=== PATIENT | female | born 1940 | race Caucasian/White ===

== ENCOUNTER 2018-09-23 14:39 | Emergency (ER) | payer MEDICARE, OTHER ==
--- NOTE | 2018-09-23 15:51 | EDM.PDOC ---
ED HPI GENERAL MEDICAL PROBLEM - General Chief Complaint: Gastrointestinal Problem Stated Complaint: VOMITING Time Seen by Provider: 09/23/18 15:00 Source of Information: Reports: Patient, Family History Limitations: Reports: No Limitations - History of Present Illness INITIAL COMMENTS - FREE TEXT/NARRATIVE: Patient states that she had episode of vomiting 3 this morning with some right lower quadrant abdominal pain 5/6 dull/crampy she said after she vomited though the pain went away she says only thing that she had to eat was last night was some dry peanuts she also states that she had acid reflux and has been belching until she vomited today she states currently now though that she feels 100% overall she has no pain feels normal has no complaints at this time patient states she has not taken any of her meds and last 24 hours which includes her insulin that she takes usually 3 times a day she has not checked her sugar this morning we checked it here in the ER and is 275 Patient has significant history for colon cancer with partial colon resection 10 years ago and has had no issues since she has been followed up and examined in the last year and was given a clean bill of health last bowel movement was 2 days ago which is normal for her to go 2 or 3 days without 1 Onset: Today Duration: Hour(s): Location: Reports: Abdomen - Related Data Allergies Allergy/AdvReac Type Severity Reaction Status Date / Time acetaminophen [From NyQuil] Allergy Other Verified 09/23/18 14:59 caffeine Allergy Cannot Verified 09/23/18 14:59 Remember codeine Allergy Rash Verified 09/23/18 14:59 dextromethorphan Allergy Other Verified 09/23/18 14:59 [From NyQuil] doxylamine [From NyQuil] Allergy Other Verified 09/23/18 14:59 pseudoephedrine Allergy Other Verified 09/23/18 14:59 Home Meds: Home Meds Lisinopril 20 mg PO DAILY 01/09/17 [History] Aspirin [Aspirin EC] 325 mg PO DAILY 09/23/18 [History] Furosemide [Lasix] 20 mg PO DAILY 09/23/18 [History] Hydrocodone/Acetaminophen [[place] 10-325 Tablet] 1 each PO Q6H PRN 09/23/18 [ History] Insulin Aspart [NovoLOG] 0 unit SQ ASDIRECTED 09/23/18 [History] Insulin Glarg,Human.Rec.Analog [Lantus Solostar] 10 unit SUBCUT BEDTIME [History] Levothyroxine 75 mcg PO ACBREAKFAST 09/23/18 [History] Meclizine [Antivert] 12.5 mg PO Q6H PRN 09/23/18 [History] Meloxicam [Mobic] 15 mg PO DAILY PRN 09/23/18 [History] Metoprolol Succinate [Toprol XL 50mg] 50 mg PO DAILY 09/23/18 [History] Oxybutynin Chloride [Ditropan Xl] 10 mg PO DAILY 09/23/18 [History] Simvastatin [Zocor] 20 mg PO BEDTIME 09/23/18 [History] Past Medical History Cardiovascular History: Reports: Heart Failure, High Cholesterol, Hypertension Gastrointestinal History: Reports: GERD Genitourinary History: Reports: Chronic Renal Insuffiency Other NURSE ORTHO History: ovarian cyst Musculoskeletal History: Reports: Gout, Osteoarthritis Psychiatric History: Reports: Depression Endocrine/Metabolic History: Reports: Diabetes, Type II, Hypothyroidism, Obesity /BMI 30+ Oncologic (Cancer) History: Reports: Colon Social & Family History - Tobacco Use Smoking Status *Q: Never Smoker ED ROS GENERAL - Review of Systems Review Of Systems: See Below Constitutional: Reports: No Symptoms. Denies: Fever, Chills, Malaise, Weakness HEENT: Reports: No Symptoms Respiratory: Reports: No Symptoms Cardiovascular: Reports: No Symptoms Endocrine: Reports: No Symptoms GI/Abdominal: Reports: No Symptoms, Abdominal Pain, Nausea, Vomiting, Other ( This morning approximately 9 AM is when she had the pain had some nausea and vomited 3 times but is fine now she said after the third time she felt much better) : Reports: No Symptoms Musculoskeletal: Reports: No Symptoms. Denies: Back Pain Skin: Reports: No Symptoms Neurological: Reports: No Symptoms Hematologic/Lymphatic: Reports: No Symptoms Immunologic: Reports: No Symptoms ED EXAM, GI/ABD - Physical Exam Exam: See Below Exam Limited By: No Limitations General Appearance: Alert, WD/WN, No Apparent Distress, Other (Patient is sitting in the wheelchair actively chewing gum laughing and cut family members and myself during the exam answers all questions follows all commands she is a and O 3 she is off on the date which she states she has not looked at the calendar and months and that her normal she has no need to keep up with the date ) Eyes: Bilateral: EOMI Nose: Normal Inspection, Normal Mucosa, No Blood Throat/Mouth: Normal Inspection, Normal Lips, Normal Teeth, Normal Gums, Normal Oropharynx, Other (Patient has spit in the oropharynx but has noted mildly dry tongue moist mucous membranes though) Neck: Normal Inspection, Supple, Non-Tender, Full Range of Motion Respiratory/Chest: No Respiratory Distress, Normal Breath Sounds, No Accessory Muscle Use, Chest Non-Tender Cardiovascular: Normal Peripheral Pulses, Regular Rate, Rhythm, No Gallop, No JVD, No Murmur, No Rub, Other (+1 bilateral pedal edema which she states is her normal secondary to history of CHF) GI/Abdominal Exam: Normal Bowel Sounds, Soft, Non-Tender, No Organomegaly, No Distention, No Mass. No: Guarding, Rigid, Rebound, Tender, Abnormal Bowel Sounds (Examination the abdomen positive bowel sounds no tenderness to palpation can be elicited over the entire abdomen no signs of any peritoneal signs or symptoms she had a negative pelvic rock no guarding rigidity was noted no hepatosplenomegaly was noted) Back Exam: No: CVA Tenderness (L), CVA Tenderness (R) Extremities: Normal Inspection, Normal Range of Motion Neurological: Alert, Oriented, CN II-XII Intact, Normal Cognition, No Motor/ Sensory Deficits Skin Exam: Warm, Dry, Intact, Normal Color, No Rash Course - Vital Signs Text/Narrative:: Patient's blood sugar was checked is 275 patient is actively chilling gum actively drinking bottled water no nausea no vomiting Patient recheck was able to hold down 8 ounce bottle of water no nausea or vomiting no pain states she is ready to go Last Recorded V/S: Last Vital Signs Temp 37.2 C 09/23/18 14:45 Pulse 78 09/23/18 14:45 Resp 18 09/23/18 14:45 BP 144/62 H 09/23/18 14:45 Pulse Ox 96 09/23/18 14:45 - Orders/Labs/Meds Labs: Laboratory Tests 09/23/18 Range/Units 15:38 POC Glucose 273 H (74-106) mg/dL Meds: Medications Discontinued Medications Generic Name Dose Route Start Last Admin Trade Name Freq PRN Reason Stop Dose Admin Ondansetron HCl 2 packet 09/23/18 15:55 09/23/18 16:19 Take Home: Ondansetron Odt 4 Mg, 2 Tab Pack PO 09/23/18 15:56 2 packet ONETIME ONE Administration Departure - Departure Time of Disposition: 16:05 Disposition: Home, Self-Care 01 Condition: Good Clinical Impression: Hyperglycemia, Resolved abdominal pain, Abdominal pain with vomiting - Discharge Information Instructions: Nausea and Vomiting, Adult, [id number] Referrals: Susana Menjivar MD [Primary Care Provider] - Forms: ED Department Discharge Additional Instructions: Return to the emergency room if anything gets worse or changes such as vomiting not able to keep any fluids down or food down not able to keep her medicines down if her blood sugar is not able to come down or gets above 400 OR if anything changes or gets worse Follow-up with her regular primary doctor in the next 24 hours Drink small amounts of fluid often such as 4-6 ounces every 30-45 minutes take your medicines as directed For your NovoLog insulin take 10 units for her nighttime Lantus take 10 units for the next 24 hours checked her sugar at least 3 times a day - Problem List & Annotations (1) Resolved abdominal pain SNOMED Code(s): 718671219 Code(s): XMH2806 - Status: Acute Current Visit: Yes (2) Vomiting SNOMED Code(s): 247693296 Code(s): R11.10 - VOMITING, UNSPECIFIED Status: Acute Current Visit: Yes (3) Diabetes mellitus SNOMED Code(s): 35013803 Code(s): E11.9 - TYPE 2 DIABETES MELLITUS WITHOUT COMPLICATIONS Status: Acute Current Visit: Yes Qualifiers: Diabetes mellitus type: type 2
[2018-09-23] MEDS ORDERED: Take Home: Ondansetron 4 MG Tab.DIS, 2 Tab Pack PO ONE (15:55)
== END 2018-09-23 16:25 | disposition home or self-care (01) ==
LOC: VM.ED 14:39
DX: R11.2 Nausea with vomiting, unspecified (principal); E11.65 Type 2 diabetes mellitus with hyperglycemia; I12.9 Hypertensive chronic kidney disease with stage 1 through stage 4 chronic kidney disease, or unspecified chronic kidney disease; N18.9 Chronic kidney disease, unspecified; E11.22 Type 2 diabetes mellitus with diabetic chronic kidney disease; E66.9 Obesity, unspecified; E03.9 Hypothyroidism, unspecified; M19.90 Unspecified osteoarthritis, unspecified site; M10.9 Gout, unspecified; Z88.5 Allergy status to narcotic agent; Z79.82 Long term (current) use of aspirin; Z79.4 Long term (current) use of insulin; Z88.8 Allergy status to other drugs, medicaments and biological substances; Z85.038 Personal history of other malignant neoplasm of large intestine
CPT/HCPCS: 82962; 99283; A9270; 99284-GF

== ENCOUNTER 2020-11-02 15:38 | Emergency (ER) | payer MEDICARE, OTHER ==
--- NOTE | 2020-11-02 16:07 | EDM.PDOC ---
ED HPI GENERAL MEDICAL PROBLEM - General Chief Complaint: Laceration Stated Complaint: Laceration Time Seen by Provider: 11/02/20 15:55 Source of Information: Reports: Patient History Limitations: Reports: No Limitations - History of Present Illness INITIAL COMMENTS - FREE TEXT/NARRATIVE: [place] she called her right leg on the corner of the door created a skin tear. States it occurred about an hour prior to arrival she states it was not really hard and did not bleed much. Tetanus is up-to-date within the last 6 years she has no other complaints at this time Onset: Today Duration: Hour(s): Location: Reports: Lower Extremity, Right Severity: Mild Associated Symptoms: Reports: No Other Symptoms Treatments HAM FACER: Reports: Other (see below) Other Treatments HAM FACER: Area cleansed with chlorhexidine - Related Data Allergies Allergy/AdvReac Type Severity Reaction Status Date / Time acetaminophen [From NyQuil] Allergy Other Verified 09/23/18 14:59 caffeine Allergy Cannot Verified 09/23/18 14:59 Remember codeine Allergy Rash Verified 09/23/18 14:59 dextromethorphan Allergy Other Verified 09/23/18 14:59 [From NyQuil] doxylamine [From NyQuil] Allergy Other Verified 09/23/18 14:59 pseudoephedrine Allergy Other Verified 09/23/18 14:59 Home Meds: Home Meds Lisinopril 20 mg PO DAILY 01/09/17 [History] Aspirin [Aspirin EC] 325 mg PO DAILY 09/23/18 [History] Furosemide [Lasix] 20 mg PO DAILY 09/23/18 [History] Hydrocodone/Acetaminophen [[place] 10-325 Tablet] 1 each PO Q6H PRN 09/23/18 [History] Insulin Aspart [NovoLOG] 0 unit SQ ASDIRECTED 09/23/18 [History] Insulin Glarg,Human.Rec.Analog [Lantus Solostar] 10 unit SUBCUT BEDTIME 09/23/18 [History] Levothyroxine 75 mcg PO ACBREAKFAST 09/23/18 [History] Meclizine [Antivert] 12.5 mg PO Q6H PRN 09/23/18 [History] Meloxicam [Mobic] 15 mg PO DAILY PRN 09/23/18 [History] Metoprolol Succinate [Toprol XL 50mg] 50 mg PO DAILY 09/23/18 [History] Oxybutynin Chloride [Ditropan Xl] 10 mg PO DAILY 09/23/18 [History] Simvastatin [Zocor] 20 mg PO BEDTIME 09/23/18 [History] Past Medical History Cardiovascular History: Reports: Heart Failure, High Cholesterol, Hypertension Gastrointestinal History: Reports: GERD Genitourinary History: Reports: Chronic Renal Insuffiency Other [employer]BS[employer]LECT[employer]OSPECTING History: ovarian cyst Musculoskeletal History: Reports: Gout, Osteoarthritis Psychiatric History: Reports: Depression Endocrine/Metabolic History: Reports: Diabetes, Type II, Hypothyroidism, Obesity/BMI 30+ Oncologic (Cancer) History: Reports: Colon ED ROS GENERAL - Review of Systems Review Of Systems: See Below Constitutional: Reports: No Symptoms HEENT: Reports: No Symptoms Respiratory: Reports: No Symptoms Cardiovascular: Reports: No Symptoms GI/Abdominal: Reports: No Symptoms Musculoskeletal: Reports: No Symptoms Skin: Reports: Other (Skin tear to the right leg) Neurological: Reports: No Symptoms Psychiatric: Reports: No Symptoms Hematologic/Lymphatic: Reports: No Symptoms Immunologic: Reports: No Symptoms ED EXAM, SKIN/RASH Exam: See Below Exam Limited By: No Limitations General Appearance: Alert, WD/WN, No Apparent Distress Eye Exam: Bilateral Eye: Normal Inspection Respiratory/Chest: No Respiratory Distress, No Accessory Muscle Use Extremities: Normal Inspection, Normal Range of Motion, Non-Tender, Normal Capillary Refill, Other (Full range of motion with the right lower extremity she is neurovascular intact there is +2+ pedal edema bilateral which is normal and chronic venous stasis). No: No Pedal Edema Neurological: Alert, Oriented, CN II-XII Intact, Normal Cognition Psychiatric: Normal Affect, Normal Mood Skin: Warm, Dry, Intact, Normal Color, No Rash, Other Location, Skin: Other (Right mid lateral tibia approximately a 1-1/2 cm flap skin tear no active bleeding noted) Course - Vital Signs Text/Narrative:: The wound was cleaned with normal saline and Hibiclens the wound was closed with Steri-Strips and Dermabond well approximated skin borders covered with Telfa pad and [place] wound care was given to the patient with instructions follow-up with her primary care provider in the next 24 to 48 hours or return to the ER if anything changes Last Recorded V/S: Last Vital Signs Temp 37.1 C 11/02/20 15:53 Pulse 86 11/02/20 15:53 Resp 16 11/02/20 15:53 BP 174/73 H 11/02/20 15:53 Pulse Ox 98 11/02/20 15:53 Departure - Departure Time of Disposition: 16:05 Disposition: Home, Self-Care 01 Condition: Good Clinical Impression: Skin tear of right lower leg without complication - Discharge Information *PRESCRIPTION DRUG MONITORING PROGRAM REVIEWED*: No *COPY OF PRESCRIPTION DRUG MONITORING REPORT IN PATIENT GUERDA: No Instructions: Skin Tear, [id number] Referrals: Susana Menjivar MD [Primary Care Provider] - Forms: ED Department Discharge Additional Instructions: Keep the wound clean and dry with warm soapy water do not peel off the Steri- Strips that were applied or the glue Follow-up with your primary care provider in the next 24 to 48 hours for wound recheck Watch for any redness swelling pain drainage from the wound if any thing like this or anything else occurs please return to the emergency room Sepsis Event Note (ED) - Evaluation Sepsis Screening Result: No Definite Risk - Focused Exam Vital Signs: Vital Signs Temp Pulse Resp BP Pulse Ox 11/02/20 15:53 37.1 C 86 16 174/73 H 98 - Problem List & Annotations (1) Skin tear of right lower leg without complication SNOMED Code(s): 830323867 Code(s): S81.811A - LACERATION W/O FOREIGN BODY, RIGHT LOWER LEG, INIT ENCNTR Status: Acute Current Visit: Yes
== END 2020-11-02 16:30 | disposition home or self-care (01) ==
LOC: VM.ED 15:38
DX: S81.811A Laceration without foreign body, right lower leg, initial encounter (principal); I13.0 Hypertensive heart and chronic kidney disease with heart failure and stage 1 through stage 4 chronic kidney disease, or unspecified chronic kidney disease; E11.22 Type 2 diabetes mellitus with diabetic chronic kidney disease; N18.9 Chronic kidney disease, unspecified; I50.9 Heart failure, unspecified; E78.00 Pure hypercholesterolemia, unspecified; M10.9 Gout, unspecified; E03.9 Hypothyroidism, unspecified; E66.9 Obesity, unspecified; Z68.43 Body mass index [BMI] 50.0-59.9, adult; Z88.6 Allergy status to analgesic agent; Z88.5 Allergy status to narcotic agent; Z88.8 Allergy status to other drugs, medicaments and biological substances; W26.8XXA Contact with other sharp object(s), not elsewhere classified, initial encounter
CPT/HCPCS: 12001; 99282-25; 99283

== ENCOUNTER 2022-01-12 14:59 | Emergency (ER) | payer MEDICARE, OTHER ==
[2022-01-12 15:41] LABS: CHLORIDE,CL 104 mmol/L (98-107); SODIUM,NA 139 mmol/L (136-145)
[2022-01-12 15:47] LABS: ANION GAP 11.9 mmol/L (5-15); ESTIMATED GFR 41 mL/min (>=60)
[2022-01-12] MEDS ORDERED: Sulfamethoxazole/Trimethoprim 800-160 MG Tab PO ONE (17:38)
== END 2022-01-12 17:50 | disposition home or self-care (01) ==
LOC: VM.ED 14:59
DX: R20.2 Paresthesia of skin (principal); I11.0 Hypertensive heart disease with heart failure; I50.9 Heart failure, unspecified; E11.9 Type 2 diabetes mellitus without complications; Z88.6 Allergy status to analgesic agent; Z91.018 Allergy to other foods; Z88.8 Allergy status to other drugs, medicaments and biological substances; Z79.899 Other long term (current) drug therapy; Z79.82 Long term (current) use of aspirin; Z79.4 Long term (current) use of insulin
CPT/HCPCS: 36415; 70450; 80053; 81001; 85025; 87086; 87088; 87186; 99284; 99285; A9270

== ENCOUNTER 2022-02-24 14:10 | Inpatient (IN) | payer MEDICARE, OTHER ==
[2022-02-24 15:32] LABS: CHLORIDE,CL 103 mmol/L (98-107); SODIUM,NA 139 mmol/L (136-145)
[2022-02-24 15:34] LABS: ANION GAP 13.9 mmol/L (5-15); ESTIMATED GFR 41 mL/min (>=60)
[2022-02-24] MEDS ORDERED: Furosemide 20 MG Tab PO ONE (19:58)
[2022-02-24] MEDS ORDERED: Lisinopril 20 MG Tab PO SCH (20:00)
[2022-02-24] MEDS ORDERED: Docusate Sodium 100 MG Cap PO PRN (21:00)
[2022-02-24] MEDS ORDERED: Lidocaine 4% 1 each Patch TOP PRN (21:06)
[2022-02-25] MEDS: Levothyroxine 75 MCG Tab PO SCH (06:19)
[2022-02-25] MEDS ORDERED: Furosemide 20 MG Tab PO SCH (09:00)
[2022-02-25] MEDS ORDERED: Aspirin 81 MG Tab.EC PO SCH (09:00)
[2022-02-25] MEDS ORDERED: Metoprolol Succinate 50 MG Tab.ER PO SCH (09:00)
[2022-02-25] MEDS: Cholecalciferol (Vitamin D3) 25 MCG Tab PO SCH (09:23)
[2022-02-25] MEDS: Oxybutynin 5 MG Tab.ER PO SCH (09:23)
[2022-02-25] MEDS: Lisinopril 20 MG Tab PO SCH (09:23)
[2022-02-25] MEDS: Heparin Sodium 5,000 Units/ML Vial SUBCUT SCH ×2 (12:35→20:21)
[2022-02-25] MEDS: Camphor/Menthol 0.5-0.5% Lotion 222 ML Bottle TOP SCH ×2 (14:11→20:22)
[2022-02-25] MEDS: Aloe Vera/Sodium Chloride Gel 14.1 GM Tube NAS SCH ×2 (17:22→20:23)
[2022-02-25] MEDS: Acetaminophen 325 MG Tab PO PRN (18:29)
[2022-02-25] MEDS: Omeprazole 20 MG Cap.CR PO SCH (20:21)
[2022-02-25] MEDS: Simvastatin 20 MG Tab PO SCH (20:22)
[2022-02-26] MEDS: Heparin Sodium 5,000 Units/ML Vial SUBCUT SCH ×3 (05:53→20:52)
[2022-02-26] MEDS: Levothyroxine 75 MCG Tab PO SCH (06:10)
[2022-02-26 08:43] LABS: ANION GAP 11.7 mmol/L (5-15)
[2022-02-26] MEDS: Camphor/Menthol 0.5-0.5% Lotion 222 ML Bottle TOP SCH ×2 (10:00→20:52)
[2022-02-26] MEDS: Cholecalciferol (Vitamin D3) 25 MCG Tab PO SCH (10:02)
[2022-02-26] MEDS: Aloe Vera/Sodium Chloride Gel 14.1 GM Tube NAS SCH ×2 (10:02→20:52)
[2022-02-26] MEDS: Lisinopril 20 MG Tab PO SCH (10:03)
[2022-02-26] MEDS: Oxybutynin 5 MG Tab.ER PO SCH (10:03)
[2022-02-26] MEDS: Furosemide 40 MG Tab PO SCH (10:03)
[2022-02-26] MEDS: Carvedilol 6.25 MG Tab PO SCH ×2 (10:03→17:39)
[2022-02-26] MEDS: Omeprazole 20 MG Cap.CR PO SCH (20:52)
[2022-02-26] MEDS: Simvastatin 20 MG Tab PO SCH (20:52)
[2022-02-27] MEDS: Heparin Sodium 5,000 Units/ML Vial SUBCUT SCH ×3 (05:13→20:01)
[2022-02-27] MEDS: Levothyroxine 75 MCG Tab PO SCH (06:18)
[2022-02-27 08:28] LABS: ANION GAP 12.5 mmol/L (5-15)
[2022-02-27] MEDS ORDERED: Melatonin 3 MG Tab PO PRN (08:42)
[2022-02-27] MEDS: Lisinopril 20 MG Tab PO SCH (09:06)
[2022-02-27] MEDS: Cholecalciferol (Vitamin D3) 25 MCG Tab PO SCH (09:06)
[2022-02-27] MEDS: Furosemide 40 MG Tab PO SCH (09:07)
[2022-02-27] MEDS: Oxybutynin 5 MG Tab.ER PO SCH (09:07)
[2022-02-27] MEDS: Aloe Vera/Sodium Chloride Gel 14.1 GM Tube NAS SCH ×2 (09:07→20:01)
[2022-02-27] MEDS: Carvedilol 6.25 MG Tab PO SCH ×2 (09:07→17:24)
[2022-02-27] MEDS: Camphor/Menthol 0.5-0.5% Lotion 222 ML Bottle TOP SCH ×2 (09:08→20:00)
[2022-02-27] MEDS: Spironolactone 25 MG Tab PO SCH (09:29)
[2022-02-27] MEDS: Acetaminophen 325 MG Tab PO PRN (17:24)
[2022-02-27] MEDS: Omeprazole 20 MG Cap.CR PO SCH (20:01)
[2022-02-27] MEDS: Simvastatin 20 MG Tab PO SCH (20:01)
[2022-02-28] MEDS: Heparin Sodium 5,000 Units/ML Vial SUBCUT SCH ×3 (06:00→21:58)
[2022-02-28] MEDS: Levothyroxine 75 MCG Tab PO SCH (06:00)
[2022-02-28 07:21] LABS: ANION GAP 10.5 mmol/L (5-15)
[2022-02-28] MEDS ORDERED: Iopamidol 612 MG/ML 100 ML Bottle IVPUSH ONE (08:09)
[2022-02-28] MEDS ORDERED: Iopamidol 612 MG/ML 50 ML SDV IVPUSH ONE (08:09)
[2022-02-28] MEDS: Furosemide 40 MG Tab PO SCH (08:47)
[2022-02-28] MEDS: Cholecalciferol (Vitamin D3) 25 MCG Tab PO SCH (08:47)
[2022-02-28] MEDS: Oxybutynin 5 MG Tab.ER PO SCH (08:48)
[2022-02-28] MEDS: Spironolactone 25 MG Tab PO SCH (08:48)
[2022-02-28] MEDS: Magnesium Oxide 400 MG Tab PO SCH (08:48)
[2022-02-28] MEDS: Lisinopril 20 MG Tab PO SCH (08:52)
[2022-02-28] MEDS: Carvedilol 6.25 MG Tab PO SCH ×2 (08:52→17:26)
[2022-02-28] MEDS: Camphor/Menthol 0.5-0.5% Lotion 222 ML Bottle TOP SCH ×2 (08:55→22:00)
[2022-02-28] MEDS: Aloe Vera/Sodium Chloride Gel 14.1 GM Tube NAS SCH ×2 (08:55→22:00)
[2022-02-28] MEDS: Acetaminophen 325 MG Tab PO PRN ×2 (15:22→21:56)
[2022-02-28] MEDS: Omeprazole 20 MG Cap.CR PO SCH (21:56)
[2022-02-28] MEDS: Simvastatin 20 MG Tab PO SCH (21:56)
[2022-03-01] MEDS: Heparin Sodium 5,000 Units/ML Vial SUBCUT SCH (06:17)
[2022-03-01] MEDS: Levothyroxine 75 MCG Tab PO SCH (06:17)
[2022-03-01] MEDS: Aloe Vera/Sodium Chloride Gel 14.1 GM Tube NAS SCH (08:26)
[2022-03-01] MEDS: Furosemide 40 MG Tab PO SCH (08:27)
[2022-03-01] MEDS: Spironolactone 25 MG Tab PO SCH (08:27)
[2022-03-01] MEDS: Carvedilol 6.25 MG Tab PO SCH (08:28)
[2022-03-01] MEDS: Oxybutynin 5 MG Tab.ER PO SCH (08:28)
[2022-03-01] MEDS: Magnesium Oxide 400 MG Tab PO SCH (08:28)
[2022-03-01] MEDS: Cholecalciferol (Vitamin D3) 25 MCG Tab PO SCH (08:28)
[2022-03-01] MEDS: Lisinopril 20 MG Tab PO SCH (08:28)
[2022-03-01] MEDS: Camphor/Menthol 0.5-0.5% Lotion 222 ML Bottle TOP SCH (08:30)
[2022-03-01] MEDS ORDERED: Iron Polysaccharides Complex 150 MG Cap PO SCH (09:00)
[2022-03-01] MEDS ORDERED: Furosemide 20 MG Tab PO SCH (12:00)
== END 2022-03-01 12:00 | disposition swing bed (61) | DRG 291 ==
LOC: VM.ED 14:10 → OBSVTOIN 20:31 → VM.MS 20:31 → UNDOADMOB 20:31 → INTOOBSV 20:31 → OBSVTOIN 02-25 08:41 → VM.MS 02-25 08:41
PROVIDERS: ADMIT Physician Assistant; ATTEND Family Medicine
DX: I50.9 Heart failure, unspecified (principal); I13.0 Hypertensive heart and chronic kidney disease with heart failure and stage 1 through stage 4 chronic kidney disease, or unspecified chronic kidney disease; N18.9 Chronic kidney disease, unspecified; I50.33 Acute on chronic diastolic (congestive) heart failure; K86.2 Cyst of pancreas; I50.1 Left ventricular failure, unspecified; D64.9 Anemia, unspecified; Z79.890 Hormone replacement therapy; I87.2 Venous insufficiency (chronic) (peripheral); Z79.899 Other long term (current) drug therapy; Z88.5 Allergy status to narcotic agent; Z88.8 Allergy status to other drugs, medicaments and biological substances; L30.9 Dermatitis, unspecified; Z66 Do not resuscitate; N18.2 Chronic kidney disease, stage 2 (mild); L30.0 Nummular dermatitis; Z85.038 Personal history of other malignant neoplasm of large intestine; F32.A Depression, unspecified; E66.01 Morbid (severe) obesity due to excess calories; E27.8 Other specified disorders of adrenal gland; G47.00 Insomnia, unspecified; R62.7 Adult failure to thrive; R04.0 Epistaxis; I87.8 Other specified disorders of veins; E03.9 Hypothyroidism, unspecified; K21.9 Gastro-esophageal reflux disease without esophagitis; E55.9 Vitamin D deficiency, unspecified; E78.00 Pure hypercholesterolemia, unspecified; E11.22 Type 2 diabetes mellitus with diabetic chronic kidney disease; M10.9 Gout, unspecified; M19.90 Unspecified osteoarthritis, unspecified site; Z79.4 Long term (current) use of insulin; Z79.82 Long term (current) use of aspirin
CPT/HCPCS: 36415; 71045; 74177; 80048; 80053; 81001; 82728; 82947; 83540; 83550; 83690; 83735; 83880; 84443; 85025; 85027; 86140; 95851-GO; 97110-GP; 97116-GP; 97162-GP; 97165-GO; 97535-GO; 99284; 99285; A9270-GY; G0328; G0378; J1644; Q9967

== ENCOUNTER 2022-08-30 16:53 | Emergency (ER) | payer MEDICARE, OTHER ==
[2022-08-30] MEDS ORDERED: Sodium Chloride 0.9% 10 ML Syringe FLUSH PRN (17:21)
[2022-08-30] MEDS: Calcium Gluc in NaCl, ISO-OSM 1,000 MG in Premix Bag 1 BAG IV ONE ×2 (17:35)
[2022-08-30] MEDS: Insulin Regular, Human 100 Units/ML 3 ML Vial IVPUSH ONE (17:36)
[2022-08-30] MEDS: Dextrose 10% in Water 500 ML IV SCH (17:36)
[2022-08-30] MEDS: 50% Dextrose in Water 50 ML Syringe IV ONE (17:36)
[2022-08-30] MEDS: Orphenadrine 60 MG/2 ML Inj IM ONE (18:00)
[2022-08-30] MEDS: Sodium Chloride 0.9% 1,000 ML IV SCH (20:10)
[2022-08-30 20:49] LABS: CALCIUM 9.5 mg/dL (8.5-10.1); CREATININE 2.4 mg/dL (0.55-1.02); EST CRCL DRUG DOSING (CG) 15.07 mL/min
[2022-08-30 20:50] LABS: ANION GAP 17.4 mmol/L (5-15)
[2022-08-30 20:51] LABS: POTASSIUM,K 6.4 mmol/L (3.5-5.1)
[2022-08-30 20:57] LABS: APPEARANCE,URINE CLEAR (CLEAR); BILIRUBIN,URINE NEGATIVE (NEGATIVE); COLOR,URINE YELLOW (YELLOW); GLUCOSE,URINE NEGATIVE (NEGATIVE); KETONES,URINE NEGATIVE (NEGATIVE); LEUKOCYTE ESTERASE,URINE NEGATIVE (NEGATIVE); NITRITE,URINE NEGATIVE (NEGATIVE); OCCULT BLOOD,URINE NEGATIVE (NEGATIVE); PROTEIN,URINE NEGATIVE (NEGATIVE); UROBILINOGEN,URINE 0.2 EU/dL (0.2)
== END 2022-08-30 21:48 | disposition home or self-care (01) ==
LOC: VM.ED 16:53
DX: E87.5 Hyperkalemia (principal); N28.9 Disorder of kidney and ureter, unspecified; I13.0 Hypertensive heart and chronic kidney disease with heart failure and stage 1 through stage 4 chronic kidney disease, or unspecified chronic kidney disease; N18.9 Chronic kidney disease, unspecified; I50.9 Heart failure, unspecified; E78.00 Pure hypercholesterolemia, unspecified; E11.22 Type 2 diabetes mellitus with diabetic chronic kidney disease; K21.9 Gastro-esophageal reflux disease without esophagitis; E66.9 Obesity, unspecified; Z68.41 Body mass index [BMI] 40.0-44.9, adult; Z88.5 Allergy status to narcotic agent; Z88.8 Allergy status to other drugs, medicaments and biological substances; Z91.048 Other nonmedicinal substance allergy status; Z79.82 Long term (current) use of aspirin; Z79.899 Other long term (current) drug therapy
CPT/HCPCS: 36415; 80048; 81003; 82947; 83735; 93005; 93010; 96361; 96365; 96366; 96368; 96372; 96375; 99284; 99285-25; J1815-GY; J2360; J3490; J7030

== ENCOUNTER 2022-12-24 05:31 | Emergency (ER) | payer MEDICARE, OTHER ==
[2022-12-24] MEDS ORDERED: Acetaminophen/HYDROcodone 325-5 MG Tab PO ONE (06:13)
[2022-12-24 06:29] LABS: BASOPHILS PERCENT AUTO 0.4 % (0.2-1.2); EOSINOPHILS ABSOLUTE AUTO 0.2 x10^3/uL (0.0-0.5); HEMATOCRIT 31.9 % (33.0-47.0); HEMOGLOBIN 10.5 g/dL (12.0-16.0); IMMATURE GRAN ABSOLUTE AUTO 0.01 x10^3/uL (0.00-0.07); LYMPHOCYTES ABSOLUTE AUTO 1.6 x10^3/uL (1.0-4.8); LYMPHOCYTES PERCENT AUTO 24.4 % (25.0-50.0); MEAN CORPUSCULAR HEMOGLOBIN 28.8 pg (26.0-32.0); MEAN CORPUSCULAR HGB CONC 32.9 g/dL (32.0-36.0); MEAN CORPUSCULAR VOLUME 87.6 fL (78.0-93.0); MONOCYTES ABSOLUTE AUTO 0.6 x10^3/uL (0.0-0.8); MONOCYTES PERCENT AUTO 8.8 % (2.0-11.0); NEUTROPHILS ABSOLUTE AUTO 4.2 x10^3/uL (1.8-7.7); NEUTROPHILS PERCENT AUTO 63.3 % (50.0-80.0); PLATELET COUNT,PLT 224 x10^3/uL (130-400); RED BLOOD CELL COUNT 3.64 x10^6/uL (4.00-5.50); WHITE BLOOD CELL COUNT,WBC 6.7 x10^3/uL (4.0-10.0)
[2022-12-24 06:40] LABS: A/G RATIO 0.89; ALANINE AMINOTRANSFERASE,ALT 19 U/L (14-59); ALBUMIN 3.4 g/dL (3.4-5.0); ALKALINE PHOSPHATASE 85 U/L (46-116); ASPARTATE AMNIOTRANSFERASE,AST 19 U/L (15-37); BILIRUBIN TOTAL 0.6 mg/dL (0.2-1.0); BLOOD UREA NITROGEN,BUN 48 mg/dL (7-18); C-REACTIVE PROTEIN 1.56 mg/dL (<=0.30); CARBON DIOXIDE,CO2 27 mmol/L (21-32); CHLORIDE,CL 102 mmol/L (98-107); CREATININE 1.7 mg/dL (0.55-1.02); GLUCOSE RANDOM 133 mg/dL (70-99); MAGNESIUM 2.2 mg/dL (1.8-2.4); POTASSIUM,K 4.1 mmol/L (3.5-5.1); PRO B-TYPE NATRIUR PEPT,BNPPRO 2562 pg/mL (<=450); PROTEIN TOTAL,TP 7.2 g/dL (6.4-8.2); SODIUM,NA 138 mmol/L (136-145)
[2022-12-24 06:43] LABS: ANION GAP 13.1 mmol/L (5-15); ESTIMATED GFR 29 mL/min (>=60)
== END 2022-12-24 08:21 | disposition home or self-care (01) ==
LOC: VM.ED 05:31
DX: I89.0 Lymphedema, not elsewhere classified (principal); M79.604 Pain in right leg; E66.9 Obesity, unspecified; E78.00 Pure hypercholesterolemia, unspecified; K21.9 Gastro-esophageal reflux disease without esophagitis; I13.0 Hypertensive heart and chronic kidney disease with heart failure and stage 1 through stage 4 chronic kidney disease, or unspecified chronic kidney disease; E11.22 Type 2 diabetes mellitus with diabetic chronic kidney disease; N18.9 Chronic kidney disease, unspecified; I50.9 Heart failure, unspecified; Z88.8 Allergy status to other drugs, medicaments and biological substances; Z88.5 Allergy status to narcotic agent; Z79.899 Other long term (current) drug therapy
CPT/HCPCS: 80053; 83735; 83880; 85025; 86140; 99284; A9270

== ENCOUNTER 2023-02-25 22:16 | Emergency (ER) | payer MEDICARE, OTHER ==
[2023-02-25] MEDS: Magnesium Hydroxide 400 MG/5 ML Susp 30 ML Cup PO ONE (22:50)
[2023-02-25] MEDS: Oxymetazoline 0.05% Nasal Spray 30 ML Bottle NAS ONE (22:50)
== END 2023-02-25 23:00 | disposition home or self-care (01) ==
LOC: VM.ED 22:16
DX: R04.0 Epistaxis (principal); K59.00 Constipation, unspecified; I11.0 Hypertensive heart disease with heart failure; I50.9 Heart failure, unspecified; E78.00 Pure hypercholesterolemia, unspecified; K21.9 Gastro-esophageal reflux disease without esophagitis; E11.9 Type 2 diabetes mellitus without complications; E66.9 Obesity, unspecified; Z90.49 Acquired absence of other specified parts of digestive tract; Z90.710 Acquired absence of both cervix and uterus; Z79.899 Other long term (current) drug therapy; Z88.5 Allergy status to narcotic agent; Z91.018 Allergy to other foods; Z88.8 Allergy status to other drugs, medicaments and biological substances
CPT/HCPCS: 30901; 99283; A9270

== ENCOUNTER 2023-05-31 20:43 | Emergency (ER) | payer MEDICARE, OTHER | END 2023-05-31 21:10 | disposition home or self-care (01) | LOC: VM.ED 20:43 | DX: B34.9 Viral infection, unspecified (principal); I13.0 Hypertensive heart and chronic kidney disease with heart failure and stage 1 through stage 4 chronic kidney disease, or unspecified chronic kidney disease; I50.9 Heart failure, unspecified; N18.9 Chronic kidney disease, unspecified; E11.22 Type 2 diabetes mellitus with diabetic chronic kidney disease; E78.00 Pure hypercholesterolemia, unspecified; E03.9 Hypothyroidism, unspecified; E66.9 Obesity, unspecified; K21.9 Gastro-esophageal reflux disease without esophagitis; Z79.899 Other long term (current) drug therapy; Z79.01 Long term (current) use of anticoagulants; Z88.8 Allergy status to other drugs, medicaments and biological substances; Z88.5 Allergy status to narcotic agent | CPT/HCPCS: 99283 ==

== ENCOUNTER 2024-03-26 18:35 | Emergency (ER) | payer MEDICARE, OTHER ==
[2024-03-26 19:22] LABS: BASOPHILS PERCENT AUTO 0.1 % (0.2-1.2); EOSINOPHILS ABSOLUTE AUTO 0.1 x10^3/uL (0.0-0.5); EOSINOPHILS PERCENT AUTO 0.5 % (0.0-4.0); HEMATOCRIT 32.8 % (33.0-47.0); IMMATURE GRAN ABSOLUTE AUTO 0.02 x10^3/uL (0.00-0.07); LYMPHOCYTES ABSOLUTE AUTO 0.3 x10^3/uL (1.0-4.8); LYMPHOCYTES PERCENT AUTO 2.2 % (25.0-50.0); MEAN CORPUSCULAR HEMOGLOBIN 31.8 pg (26.0-32.0); MEAN CORPUSCULAR HGB CONC 33.5 g/dL (32.0-36.0); MEAN CORPUSCULAR VOLUME 94.8 fL (78.0-93.0); MONOCYTES ABSOLUTE AUTO 0.6 x10^3/uL (0.0-0.8); MONOCYTES PERCENT AUTO 5.2 % (2.0-11.0); NEUTROPHILS ABSOLUTE AUTO 11.4 x10^3/uL (1.8-7.7); PLATELET COUNT,PLT 146 x10^3/uL (130-400); RED BLOOD CELL COUNT 3.46 x10^6/uL (4.00-5.50); WHITE BLOOD CELL COUNT,WBC 12.4 x10^3/uL (4.0-10.0)
[2024-03-26 19:30] LABS: NEUTROPHILS PERCENT AUTO 91.8 % (50.0-80.0)
[2024-03-26 19:40] LABS: LACTIC ACID 1.1 mmol/L (0.4-2.0)
[2024-03-26] MEDS: Acetaminophen 325 MG Tab PO ONE (19:45)
[2024-03-26 19:46] LABS: A/G RATIO 0.82; ALBUMIN 3.1 g/dL (3.4-5.0); BILIRUBIN TOTAL 1.3 mg/dL (0.2-1.0); CALCIUM 8.8 mg/dL (8.5-10.1); CREATININE 1.8 mg/dL (0.55-1.02); EST CRCL DRUG DOSING (CG) 16.41 mL/min; POTASSIUM,K 3.6 mmol/L (3.5-5.1); PROTEIN TOTAL,TP 6.9 g/dL (6.4-8.2)
[2024-03-26 19:52] LABS: ANION GAP 11.6 mmol/L (5-15)
[2024-03-26 20:12] LABS: APPEARANCE,URINE CLOUDY (CLEAR); BILIRUBIN,URINE NEGATIVE (NEGATIVE); COLOR,URINE YELLOW (YELLOW); GLUCOSE,URINE NEGATIVE (NEGATIVE); KETONES,URINE NEGATIVE (NEGATIVE); LEUKOCYTE ESTERASE,URINE SMALL (NEGATIVE); NITRITE,URINE NEGATIVE (NEGATIVE); OCCULT BLOOD,URINE MODERATE (NEGATIVE); PROTEIN,URINE >=300 mg/dL (NEGATIVE); UROBILINOGEN,URINE 0.2 EU/dL (0.2)
[2024-03-26 20:18] LABS: AMORPHOUS SEDIMENT,URINE FEW; BACTERIA,URINE FEW /HPF (NOT SEEN); MUCUS,URINE FEW /LPF (NOT SEEN); RBC,URINE 30-40 /HPF (NOT SEEN); SQUAMOUS EPITHELIAL CELLS,UR FEW /HPF (NOT SEEN); WBC,URINE 30-40 /HPF (NOT SEEN)
[2024-03-26] MEDS: Take Home: Sulfamethoxazole/Trimethoprim 800-160 MG Tab, 6 Tab Pack PO ONE (21:05)
== END 2024-03-26 21:16 | disposition home or self-care (01) ==
LOC: VM.ED 18:35
DX: N39.0 Urinary tract infection, site not specified (principal); I48.91 Unspecified atrial fibrillation; I25.10 Atherosclerotic heart disease of native coronary artery without angina pectoris; I13.0 Hypertensive heart and chronic kidney disease with heart failure and stage 1 through stage 4 chronic kidney disease, or unspecified chronic kidney disease; I50.9 Heart failure, unspecified; N18.9 Chronic kidney disease, unspecified; E78.00 Pure hypercholesterolemia, unspecified; K21.9 Gastro-esophageal reflux disease without esophagitis; E03.9 Hypothyroidism, unspecified; E11.22 Type 2 diabetes mellitus with diabetic chronic kidney disease; E66.9 Obesity, unspecified; Z68.43 Body mass index [BMI] 50.0-59.9, adult; Z90.49 Acquired absence of other specified parts of digestive tract; Z90.710 Acquired absence of both cervix and uterus; Z88.5 Allergy status to narcotic agent; Z88.8 Allergy status to other drugs, medicaments and biological substances; Z91.018 Allergy to other foods; Z91.048 Other nonmedicinal substance allergy status; Z79.890 Hormone replacement therapy; Z79.01 Long term (current) use of anticoagulants; Z79.899 Other long term (current) drug therapy
CPT/HCPCS: 36415; 80053; 81001; 83605; 85025; 87086; 87088; 87186; 87428-QW; 99284; A9270-GY